=== PATIENT | female | born 1960 | race Caucasian/White ===

== ENCOUNTER 2017-06-13 10:00 | Emergency (ER) | payer BC, OTHER ==
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
[2017-06-13 10:44] VITALS: RESP 18
[2017-06-13] MEDS ORDERED: ONDANSETRON 4 MG/2 ML VIAL IVP ONE (11:35)
[2017-06-13 12:17] VITALS: BP 139/87; PULSE 57; TEMP 98.2; O2SAT 100
[2017-06-13] MEDS ORDERED: KETOROLAC 30 MG/1 ML SDV IVP ONE (12:39)
== END 2017-06-13 14:26 | disposition home or self-care (01) ==
LOC: EDUNIT#
PROC: 0HQ1XZZ Repair Face Skin, External Approach (ICD-10-PCS; principal; 2017-06-13)
DX: S06.0X0A Concussion without loss of consciousness, initial encounter (principal); S01.01XA Laceration without foreign body of scalp, initial encounter; S01.21XA Laceration without foreign body of nose, initial encounter; V13.4XXA Pedal cycle driver injured in collision with car, pick-up truck or van in traffic accident, initial encounter; Y92.410 Unspecified street and highway as the place of occurrence of the external cause; Y99.8 Other external cause status; Y93.55 Activity, bike riding
CPT/HCPCS: 96374; J1885; J2405; L0174